=== PATIENT | female | born 1990 | race Caucasian/White ===

== ENCOUNTER 2018-02-11 21:45 | Emergency (ER) | payer OTHER ==
[~2018-02-11] VITALS: Ht 165.1 cm; Wt 86.2 kg
[~2018-02-11 21:45] MED LIST: MULTI VITAMIN1 EACH; SYNTHROID150 MCG PO
[2018-02-11] MEDS ORDERED: LEVAQUIN750 MG (22:01)
[2018-02-12] MEDS ORDERED: FLONASE16 GM NASAL ×2 (02:15→02:17)
[2018-02-12] MEDS ORDERED: CEFUROXIME500 MG PO (02:16)
[2018-02-12] MEDS ORDERED: ZYNCOF 20-400120 ML PO (02:16)
== END 2018-02-12 02:08 | disposition home or self-care (01) ==
LOC: ER 21:45
DX: J02.8 Acute pharyngitis due to other specified organisms (principal); J06.9 Acute upper respiratory infection, unspecified

== ENCOUNTER 2018-07-10 07:16 | Emergency (ER) | payer OTHER ==
[~2018-07-10] VITALS: Ht 165.1 cm; Wt 86.2 kg
[~2018-07-10 07:16] MED LIST changes: +CEFUROXIME500 MG PO; +FLONASE16 GM NASAL; +LEVAQUIN750 MG; +ZYNCOF 20-400120 ML PO
[2018-07-10] MEDS ORDERED: KETO10TA2 PO (08:39)
[2018-07-10] MEDS ORDERED: FLONASE ALLERG9.9 ML NASAL (08:39)
[2018-07-10] MEDS ORDERED: MUCINEX DM ER1 EAC1 PO (08:39)
[2018-07-10] MEDS ORDERED: ZITHROMAX500 MG PO (08:39)
== END 2018-07-10 08:57 ==
LOC: ER 07:16
DX: J06.9 Acute upper respiratory infection, unspecified (principal); H66.92 Otitis media, unspecified, left ear

== ENCOUNTER → 2018-11-25 | Outpatient (CLI) | payer OTHER ==
[~2018-11-25] MED LIST changes: +FLONASE ALLERG9.9 ML NASAL; +KETO10TA2 PO; +MUCINEX DM ER1 EAC1 PO; +ZITHROMAX500 MG PO
== END | disposition home or self-care (01) ==
LOC: MAMO-SONO 11-19 14:15 → SONOGRAMA 07:10
DX: Z34.82 Encounter for supervision of other normal pregnancy, second trimester (principal)

== ENCOUNTER → 2018-12-28 | Emergency (ER) | payer OTHER ==
[~2018-12-28] VITALS: Ht 165.1 cm; Wt 93.0 kg
[~2018-12-28] MED LIST changes: +FOLIC ACID1 MG; +PRENATABS RX T1 EACH
== END | disposition home or self-care (01) ==
LOC: ER 19:57
DX: H60.8X2 Other otitis externa, left ear (principal)

== ENCOUNTER 2019-04-01 11:32 | Inpatient (IN) | payer OTHER ==
[~2019-04-01] VITALS: Ht 165.1 cm; Wt 97.5 kg
[2019-04-20] MEDS ORDERED: SYNTHROID200 MCG (11:31)
== END 2019-04-24 13:40 | disposition home or self-care (01) | DRG 788 ==
LOC: OB/GYN 04-21 08:01 → O/R 04-21 08:01 → OB/GYN 04-21 14:45
PROVIDERS: ADMIT Specialist
PROC: 0UB90ZZ Excision of Uterus, Open Approach (ICD-10-PCS; 2019-04-21)
PROC: 4A1HXCZ Monitoring of Products of Conception, Cardiac Rate, External Approach (ICD-10-PCS; 2019-04-21)
PROC: 10D00Z1 Extraction of Products of Conception, Low, Open Approach (ICD-10-PCS; principal; 2019-04-21 07:00)
DX: O82 Encounter for cesarean delivery without indication (principal); O65.4 Obstructed labor due to fetopelvic disproportion, unspecified; O34.13 Maternal care for benign tumor of corpus uteri, third trimester; O65.5 Obstructed labor due to abnormality of maternal pelvic organs; D26.0 Other benign neoplasm of cervix uteri; Z3A.40 40 weeks gestation of pregnancy; Z37.0 Single live birth

== ENCOUNTER → 2019-04-15 | Outpatient (CLI) | payer OTHER ==
[~2019-04-15] MED LIST changes: +SYNTHROID200 MCG
== END | disposition home or self-care (01) ==
LOC: PRENATAL 08:51
DX: O26.843 Uterine size-date discrepancy, third trimester (principal); O36.8131 Decreased fetal movements, third trimester, fetus 1; O99.89 Other specified diseases and conditions complicating pregnancy, childbirth and the puerperium

== ENCOUNTER → 2020-06-09 | Outpatient (CLI) | payer OTHER | END | disposition home or self-care (01) | LOC: PRENATAL 07:48 | PROVIDERS: ATTEND Obstetrics & Gynecology Maternal & Fetal Medicine | DX: O35.0XX1 Maternal care for (suspected) central nervous system malformation in fetus, fetus 1 (principal); O35.3XX1 Maternal care for (suspected) damage to fetus from viral disease in mother, fetus 1; O98.512 Other viral diseases complicating pregnancy, second trimester; O99.212 Obesity complicating pregnancy, second trimester; O99.891 Other specified diseases and conditions complicating pregnancy; Z36.89 Encounter for other specified antenatal screening; Z3A.24 24 weeks gestation of pregnancy ==

== ENCOUNTER → 2020-08-01 | Outpatient (CLI) | payer OTHER | END | disposition home or self-care (01) | LOC: PRENATAL 08:30 | PROVIDERS: ATTEND Obstetrics & Gynecology Maternal & Fetal Medicine | DX: O26.843 Uterine size-date discrepancy, third trimester (principal); O99.213 Obesity complicating pregnancy, third trimester; O99.891 Other specified diseases and conditions complicating pregnancy; Z36.89 Encounter for other specified antenatal screening; Z3A.31 31 weeks gestation of pregnancy ==

== ENCOUNTER 2020-09-02 08:00 | Inpatient (IN) | payer OTHER ==
[~2020-09-02] VITALS: Ht 165.1 cm; Wt 99.8 kg
[2020-09-09] MEDS ORDERED: LEVO-T300 MCG PO (08:14)
[2020-09-12] MEDS ORDERED: IBUPROFEN800 MG PO (07:49)
== END 2020-09-12 15:02 | disposition home or self-care (01) | DRG 785 ==
LOC: O/R 09-09 07:04 → OB/GYN 09-09 07:04
PROVIDERS: ADMIT Specialist; ATTEND Specialist
PROC: 0UB70ZZ Excision of Bilateral Fallopian Tubes, Open Approach (ICD-10-PCS; 2020-09-09)
PROC: 4A1HXFZ Monitoring of Products of Conception, Cardiac Rhythm, External Approach (ICD-10-PCS; 2020-09-09)
PROC: 10D00Z1 Extraction of Products of Conception, Low, Open Approach (ICD-10-PCS; principal; 2020-09-09 10:15)
DX: O65.5 Obstructed labor due to abnormality of maternal pelvic organs (principal); O34.211 Maternal care for low transverse scar from previous cesarean delivery; Z30.2 Encounter for sterilization; Z37.0 Single live birth; Z3A.38 38 weeks gestation of pregnancy

== ENCOUNTER 2022-08-03 09:56 | Outpatient (CLI) | payer OTHER ==
[~2022-08-03 09:56] MED LIST changes: +IBUPROFEN800 MG PO; +LEVO-T300 MCG PO
== END 2022-08-03 11:14 | disposition home or self-care (01) ==
LOC: SONOGRAMA 09:56
PROVIDERS: ATTEND Colon & Rectal Surgery
DX: N63.11 Unspecified lump in the right breast, upper outer quadrant (principal)

== ENCOUNTER 2022-08-10 10:13 | Outpatient (CLI) | payer OTHER | END 2022-08-10 10:29 | disposition home or self-care (01) | LOC: SONOGRAMA 10:13 | PROVIDERS: ATTEND Surgery | DX: D24.1 Benign neoplasm of right breast (principal); N60.11 Diffuse cystic mastopathy of right breast; N60.12 Diffuse cystic mastopathy of left breast ==

== ENCOUNTER 2024-10-06 19:06 | Emergency (ER) | payer OTHER ==
[~2024-10-06] VITALS: Ht 167.6 cm; Wt 90.7 kg
[2024-10-06] MEDS ORDERED: NORVASC5 MG (19:54)
[2024-10-06] MEDS ORDERED: CLONIDINE HCL 0.1 MG TABLET PO ONE (19:59)
[2024-10-06] MEDS ORDERED: cloNIDine HCL 0.2 MG TABLET PO ONE (20:00)
== END 2024-10-06 22:08 | disposition home or self-care (01) ==
LOC: ER 19:08
DX: I10 Essential (primary) hypertension (principal); E03.8 Other specified hypothyroidism; Z88.9 Allergy status to unspecified drugs, medicaments and biological substances